=== PATIENT | male | born 1950 | race Caucasian/White ===

== ENCOUNTER → 2021-10-02 | Outpatient (CLI) | payer BC ==
[2021-10-02 16:15] LABS: ALBUMIN 4.5 g/dL (3.4-4.8)
[2021-10-02 16:16] LABS: POTASSIUM 4.6 mmol/L (3.5-5.1)
[2021-10-02 16:17] LABS: CALCIUM 10.1 mg/dL (8.3-10.5)
[2021-10-02 16:18] LABS: TOTAL PROTEIN 7.6 g/dL (6.2-8.1)
[2021-10-02 16:20] LABS: TOTAL BILIRUBIN 0.9 mg/dL (0.2-1.2)
== END ==
LOC: LAB 15:38
PROVIDERS: Nurse Practitioner Family
DX: U07.1 COVID-19 (principal)